=== PATIENT | male | born 2005 | race Caucasian/White ===

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

== ENCOUNTER 2024-05-16 11:31 | Day surgery (SDC) | payer BC ==
[2024-05-16] MEDS: Sodium Chloride 0.9% 250 ML IV SCH (11:46)
[2024-05-16 14:03] VITALS: BP 136/71; PULSE 53
== END 2024-05-16 13:00 | disposition home or self-care (01) ==
LOC: CC.SDS 11:31
PROVIDERS: ATTEND Family Medicine
DX: K21.9 Gastro-esophageal reflux disease without esophagitis (principal)
CPT/HCPCS: 731; 87081